=== PATIENT | male | born 1995 | race Two or more races ===

== ENCOUNTER 2018-09-08 17:45 | Emergency (ER) | payer MEDICAID, OTHER ==
[~2018-09-08] VITALS: Ht 198.1 cm; Wt 127.0 kg
[2018-09-08] MEDS ORDERED: ACETAMINOPHEN/CODEINE#3 (300/30mg) TAB PO ONE (19:00)
[2018-09-08] MEDS ORDERED: cefTRIAXone SOD 1,000 MG VL IM ONE (19:00)
[2018-09-08] MEDS ORDERED: LIDOCAINE 2% (LOCAL ANESTH.) PF 5ml SDV ONE (19:43)
[2018-09-08] MEDS ORDERED: LIDOCAINE 2%HCL (LOCAL ANESTH.) INJ 10ml MDV IJ ONE (20:00)
[2018-09-08 20:09] VITALS: BP 124/77
== END 2018-09-08 23:20 | disposition home or self-care (01) ==
LOC: ER 17:57
DX: K04.7 Periapical abscess without sinus (principal)
CPT/HCPCS: 96372; 99283; J0696; J2001

== ENCOUNTER 2020-02-27 22:09 | Emergency (ER) | payer SELFPAY ==
[~2020-02-27] VITALS: Ht 195.6 cm; Wt 117.9 kg
[2020-02-28 01:49] VITALS: BP 128/94
[2020-02-28] MEDS ORDERED: methylPREDNISolone SOD SUCC 125 MG/2 ML VL IM ONE (02:00)
== END 2020-02-28 02:22 | disposition home or self-care (01) ==
LOC: ER 22:09
DX: T63.441A Toxic effect of venom of bees, accidental (unintentional), initial encounter (principal); M79.89 Other specified soft tissue disorders
CPT/HCPCS: 73120; 96372; 99283; J2930

== ENCOUNTER 2022-02-13 04:53 | Emergency (ER) | payer SELFPAY ==
[~2022-02-13] VITALS: Ht 195.6 cm; Wt 135.3 kg
[2022-02-13] MEDS ORDERED: CLIN300C8 PO (07:44)
[2022-02-13] MEDS ORDERED: IBUP800T27 PO (07:44)
[2022-02-13 07:55] VITALS: BP 141/83
== END 2022-02-13 18:19 | disposition home or self-care (01) ==
LOC: ER 04:53
DX: K04.7 Periapical abscess without sinus (principal)
CPT/HCPCS: 41800